=== PATIENT | female | born 1975 | race Two or more races ===

== ENCOUNTER 2025-04-04 10:50 | Emergency (ER) | payer OTHER ==
[~2025-04-04] VITALS: Ht 177.8 cm; Wt 83.9 kg
[2025-04-04 10:50] VITALS: BP 138/89; TEMP 98.9
[2025-04-04] MEDS ORDERED: AMOX/CLAVULANATE 875 MG TABLET ONE (11:04)
[2025-04-04] MEDS: AMOX/CLAVULANATE 875 MG TABLET PO ONE (11:07)
[2025-04-04] MEDS ORDERED: AMOX-430 PO (11:40)
[2025-04-04 11:45] VITALS: O2SAT 98
== END 2025-04-04 11:45 | disposition home or self-care (01) ==
LOC: ER 11:02
DX: K08.89 Other specified disorders of teeth and supporting structures (principal)
CPT/HCPCS: 82962-TC